=== PATIENT | female | born 1935 | race Asian ===

== ENCOUNTER 2018-09-04 08:46 | Day surgery (SDC) | payer MEDICARE, OTHER ==
[~2018-09-04] VITALS: Ht 154.9 cm; Wt 40.9 kg
[2018-09-04 09:26] VITALS: Ht 154.9 cm; Wt 40.9 kg
[2018-09-04] MEDS ORDERED: HTN MED. DAILY (09:35)
[2018-09-04 09:38] VITALS: BP 131/82; PULSE 107; RESP 18
--- NOTE | 2018-09-04 10:21 | PREAC ---
Date/Time of Note Date/Time of Note DATE: 09/04/18 TIME: 10:20 Anesthesia Eval and Record Evaluation Time Pre-Procedure Interview DATE: 09/04/18 TIME: 10:20 Age 83 Sex female NPO: 8 hrs Preoperative diagnosis constipation chronic Planned procedure colonoscopy Past Medical History Past Medical History: Includes Cardio: HTN, Dyslipidemia Surgery & Anesthesia Issues No known issue Meds Anticoagulation: No Beta Prerna within 24 hr: No Reason Beta Prerna not given: Pt. not on B-Prerna Reported Medications [Htn Med. Daily] No Conflict Check 09/04/18 Meds reviewed: Yes Allergies Allergies Reviewed: Yes Labs/Studies Labs Reviewed: Reviewed by anesthesiologist test: N/A Pre-procedure Exam Last vitals Vital Signs Date Temp Pulse Resp B/P (MAP) Pulse Ox O2 O2 Flow FiO2 Time Delivery Rate 09/04/18 96.6 107 18 131/82 98 Room Air 09:38 (98) Airway: Adequate mouth opening, Adequate thyromental dist Mallampati: Mallampati I Teeth: Normal Lung: Normal Heart: Normal ASA Physical Status ASA physical status: 2 Emergency: None Planned Anesthetic General/MAC: MAC Planned Pain Management Parenteral pain med Pre-operative Attestations Prior to commencing anesthesia and surgery, the patient was re-evaluated, there was verification of: *The patient's identity *The results of appropriate recent lab work and preoperative vital signs *The above evaluation not changing prior to induction *Anesthetic plan, risk benefits, alternative and complications discussed with patient/family; questions answered; patient/family understands, accepts and wishes to proceed. DUDLEY BETTENCOURT Sep 04, 2018 10:21
[2018-09-04] MEDS ORDERED: LIDOCAINE 2% (SDV) 5 ML INJ ONE (10:24)
[2018-09-04] MEDS ORDERED: PROPOFOL 40 ML ONE (10:24)
[2018-09-04] MEDS ORDERED: LABETALOL HCL 20MG INJ IV PRN (10:30)
[2018-09-04] MEDS ORDERED: EPHEDrine SULFATE 50 MG/5 ML SYG IV PRN (10:30)
[2018-09-04] MEDS ORDERED: hydrALAzine 20 MG INJ IV PRN (10:30)
[2018-09-04] MEDS ORDERED: ONDANSETRON 4 MG INJ IV PRN (10:30)
--- NOTE | 2018-09-04 11:04 | PAC ---
Date/Time of Note Date/Time of Note DATE: 09/04/18 TIME: 11:04 Post-Anesthesia Notes Post-Anesthesia Note Last documented vital signs Vital Signs Date Temp Pulse Resp B/P (MAP) Pulse Ox O2 O2 Flow FiO2 Time Delivery Rate 09/04/18 96.6 107 18 131/82 98 Room Air 1102 (98) Activity: WNL Respiratory function: WNL Cardiovascular function: WNL Mental status: Baseline Pain reasonably controlled: Yes Hydration appropriate: Yes Nausea/Vomiting absent: Yes DUDLEY BETTENCOURT Sep 04, 2018 11:04
[2018-09-04 11:40] VITALS: BP 127/74; PULSE 120; RESP 20
== END 2018-09-04 12:17 | disposition home or self-care (01) ==
LOC: GIL 08:46
PROVIDERS: ATTEND Internal Medicine Gastroenterology
DX: R19.4 Change in bowel habit (principal); D12.0 Benign neoplasm of cecum; K55.20 Angiodysplasia of colon without hemorrhage; I10 Essential (primary) hypertension
CPT/HCPCS: 88305